=== PATIENT | female | born 1995 | race Caucasian/White ===

== ENCOUNTER 2021-10-03 14:24 | Outpatient (CLI) | payer BC ==
[2021-10-04 18:13] LABS: SARS-CoV-2 PCR by NAA Not Detected (NotDetected)
== END 2021-10-03 14:25 | disposition home or self-care (01) ==
LOC: CSHLAB 14:24
PROVIDERS: ATTEND Obstetrics & Gynecology
DX: Z20.822 Contact with and (suspected) exposure to COVID-19 (principal)
CPT/HCPCS: U0003; U0005

== ENCOUNTER 2021-10-07 15:33 | Inpatient (IN) | payer BC ==
[2021-10-08 07:13] VITALS: BMI 35.4
[2021-10-08] MEDS ORDERED: Misoprostol 100 MCG TAB VAG SCH (07:13)
[2021-10-08] MEDS ORDERED: HYDROcodone/Acetaminophen 5/325 mg Tablet PO PRN ×2 (07:13)
[2021-10-08] MEDS ORDERED: Promethazine HCl 25 MG/ML VIAL IM PRN ×2 (07:13→14:05)
[2021-10-08] MEDS ORDERED: Ondansetron PF 4 MG/2 ML Vial IVP PRN ×2 (07:13→14:05)
[2021-10-08] MEDS ORDERED: NS w/ Oxytocin 30 units 500 ML IV SCH ×2 (07:13)
[2021-10-08] MEDS ORDERED: Acetaminophen 500 MG TAB PO PRN (07:13)
[2021-10-08] MEDS ORDERED: Diphenoxylate HCl/Atropine Tablet PO PRN ×2 (07:13)
[2021-10-08] MEDS ORDERED: Misoprostol 200 MCG TAB PR PRN (07:13)
[2021-10-08] MEDS ORDERED: Lactated Ringer's 1,000 ML IV SCH (07:13)
[2021-10-08] MEDS ORDERED: Butorphanol Tartrate 1 MG/ML VIAL SLOW IVP PRN (07:13)
[2021-10-08] MEDS ORDERED: hydrALAZINE 20 MG/ML VIAL SLOW IVP PRN ×2 (07:13→15:30)
[2021-10-08] MEDS ORDERED: Lidocaine 1% (PF) 30 ML VIAL SC PRN (07:13)
[2021-10-08] MEDS ORDERED: Carboprost 250 MCG/ML AMP IM PRN (07:13)
[2021-10-08] MEDS ORDERED: Ibuprofen 800 MG TAB PO PRN (07:13)
[2021-10-08 08:38] LABS: Hemoglobin 10.9 g/dL (12.0-15.5); Mean Corpuscular HGB CONC 32.9 g/dL (32.0-36.0); Mean Corpuscular Hemoglobin 28.5 pg (27.0-33.0); Mean Corpuscular Volume 86.6 fl (81.6-98.3); Mean Platelet Volume 10.3 fl (7.4-10.4); Platelet Count 155 10x3/uL (150-450); RBC Distribution Width 16.2 % (11.5-14.5); Red Blood Cell (RBC) Count 3.82 10x6/uL (3.90-5.03); White Blood Cell (WBC) Count 13.8 10x3/uL (3.5-10.5)
[2021-10-08 08:56] LABS: Hep B Surf Ag Non-Reactive S/CO (NonReactive); Syphilis Antibody Nonreactive (Nonreactive); Syphilis Antibody Index 0.03 S/CO (<1.00 Non-Reactive)
[2021-10-08 09:14] LABS: HBSAg Index 0.16 S/CO (0-0.99)
[2021-10-08] MEDS ORDERED: Fentanyl 2 mcg/Bup 0.1% Cadd 100 ML ONE (11:40)
[2021-10-08] MEDS ORDERED: Acetaminophen 325 MG TAB PO PRN (14:05)
[2021-10-08] MEDS ORDERED: ePHEDrine Sulfate 50 MG/10 ML VIAL SLOW IVP PRN (14:05)
[2021-10-08] MEDS ORDERED: Naloxone HCl 0.4 mg/ml Vial IVP PRN ×2 (14:05)
[2021-10-08] MEDS ORDERED: diphenhydrAMINE 50 MG/ML VIAL IVP PRN (14:05)
[2021-10-08] MEDS ORDERED: Hydrocerin (Eucerin) Cream 120 gm Jar TOP PRN (14:05)
[2021-10-08] MEDS ORDERED: Lactated Ringer's 500 ML IV PRN (14:05)
[2021-10-08] MEDS ORDERED: Fentanyl 2 mcg/Bupivacaine 0.1% Cassette 100 ML EPIDURAL SCH (14:15)
[2021-10-08] MEDS ORDERED: Communication Order-Pharmacy FS SCH (14:15)
[2021-10-08] MEDS ORDERED: Milk Of Magnesia 30 ML UDCUP PO PRN (15:30)
[2021-10-08] MEDS ORDERED: Lanolin Ointment 7 GM TUBE TOP PRN (15:30)
[2021-10-08] MEDS ORDERED: Boostrix 0.5 ML (Tdap) VIAL IM ONE (15:30)
[2021-10-08] MEDS ORDERED: traMADol HCl 50 MG TAB PO PRN ×2 (15:30)
[2021-10-08] MEDS ORDERED: Bisacodyl 10 MG SUPP PR PRN (15:30)
[2021-10-08] MEDS ORDERED: Ibuprofen 800 MG TAB PO SCH (19:00)
[2021-10-08] MEDS: Ferrous Sulfate 325 MG TAB PO SCH (22:50)
[2021-10-08] MEDS: Docusate Calcium (SURFAK) 240 MG CAP PO SCH (22:51)
[2021-10-09] MEDS: Ibuprofen 800 MG TAB PO SCH ×2 (05:48→14:10)
[2021-10-09] MEDS: Ferrous Sulfate 325 MG TAB PO SCH ×2 (08:26→14:29)
[2021-10-09] MEDS ORDERED: Prenatal Vitamin 1 TAB PO SCH (09:00)
[2021-10-09] MEDS: Docusate Calcium (SURFAK) 240 MG CAP PO SCH (09:10)
[2021-10-09 12:15] VITALS: BP 116/57; TEMP 97.7
== END 2021-10-09 17:55 | disposition home or self-care (01) | DRG 807 ==
LOC: CSHLD 10-08 06:42 → CSHPP 10-08 22:07
PROVIDERS: ADMIT Obstetrics & Gynecology; ATTEND Obstetrics & Gynecology
PROC: 10E0XZZ Delivery of Products of Conception, External Approach (ICD-10-PCS; principal; 2021-10-09)
PROC: 0KQM0ZZ Repair Perineum Muscle, Open Approach (ICD-10-PCS; 2021-10-09)
DX: O70.1 Second degree perineal laceration during delivery (principal); Z37.0 Single live birth; Z3A.39 39 weeks gestation of pregnancy
CPT/HCPCS: 36415; 85027; 86780; 86850; 86900; 86901; 87340; J2590; J7120